=== PATIENT | male | born 1965 | race American Indian/Alaskan Native ===

== ENCOUNTER 2020-01-14 08:16 | Inpatient (IN) | payer MEDICARE ==
[2020-01-14] MEDS ORDERED: ASPIRIN 325 MG TAB PO ONE (09:42)
--- NOTE | 2020-01-14 10:34 | XRay Report ---
CHEST 2 VIEWS INDICATION / CLINICAL INFORMATION: Chest Pain. COMPARISON: None. FINDINGS: SUPPORT DEVICES: Bilateral central venous catheters present with both tips projecting over the superi or cavoatrial junction. HEART / MEDIASTINUM: No significant abnormality. LUNGS / PLEURA: Mild pulmonary vascular congestion. No pneumothorax. ADDITIONAL FINDINGS: No significant additional findings. IMPRESSION: 1. Mild pulmonary vascular congestion without focal pulmonary abnormality. Signer Name: Shahzad Oliva MD Signed: 01/14/2020 10:29 AM Workstation Name: [id number]
[2020-01-14 11:41] LABS: Basophils # (Auto) 0.1 K/mm3 (0.0-0.1); Eosinophils % (Auto) 0.8 % (0.0-4.3); Hematocrit 44.5 % (35.5-45.6); Hemoglobin 14.5 gm/dl (11.8-15.2); Lymphocytes # (Auto) 1.2 K/mm3 (1.2-5.4); Lymphocytes % (Auto) 11.9 % (13.4-35.0); Mean Corpuscular HGB Conc 33 % (32-34); Mean Corpuscular Volume 91 fl (84-94); Monocytes % (Auto) 10.6 % (0.0-7.3); Platelet Count 116 K/mm3 (140-440)
[2020-01-14 11:42] LABS: Basophils % (Auto) 0.8 % (0.0-1.8); Eosinophils # (Auto) 0.1 K/mm3 (0.0-0.4); Red Cell Distribution Width 14.4 % (13.2-15.2)
[2020-01-14 11:53] LABS: Calcium 9.5 mg/dL (8.4-10.2)
--- NOTE | 2020-01-14 11:56 | Event Note ---
ED Screening Note ED Screening Note: left sided cp and rib pain that began tuesday after finishing dialysis states he has bouts of SOB when he gets pain no leg swelling has a permcath for dialysis no fever no cough no v/d no sick contacts no recent travel PMHx ESRD, DM, HTN, HLD, anemia allergy: lisinopril This initial assessment/diagnostic orders/clinical plan/treatment(s) is/are subject to change based on patients health status, clinical progression and re- assessment by fellow clinical providers in the ED. Further treatment and workup at subsequent clinical providers discretion. Patient/guardian urged not to elope from the ED as their condition may be serious if not clinically assessed and managed. Initial orders include: CP protocol
[2020-01-14 12:20] LABS: Chol/HDL Ratio 2.7 %
[2020-01-14 12:58] LABS: Alanine Aminotransferase 11 units/L (7-56); Albumin 4.6 g/dL (3.9-5)
[2020-01-14 12:59] LABS: Bilirubin,Direct < 0.2 mg/dL (0-0.2)
--- NOTE | 2020-01-14 13:58 | Nuclear Medicine Report ---
NUCLEAR MEDICINE PERFUSION LUNG SCAN INDICATION / CLINICAL INFORMATION: SOB. TECHNIQUE: 5.2 mCi of Tc-99m MAA were given by IV. COMPARISON: Chest radiographs dated 01/14/2020. FINDINGS: PERFUSION: No significant perfusion defects. ADDITIONAL FINDINGS: None. IMPRESSION: 1. Low probability for pulmonary embolism. Signer Name: Carson Nunes MD Signed: 01/14/2020 1:54 PM Workstation Name: [id number]
--- NOTE | 2020-01-14 14:58 | Emergency Department Report ---
ED General Adult HPI - General Chief complaint: Chest Pain Stated complaint: LF SIDE RIB PAIN Time Seen by Provider: 01/14/20 11:54 Source: patient Mode of arrival: Wheelchair Limitations: No Limitations - History of Present Illness Initial comments: The patient presents to the emergency department the chief complaint of left- sided chest pain that has been intermittent since Tuesday. Patient states the chest pain started after dialysis. Patient states that he saw his bread packer who is with [facility] cardiology and is scheduled for stress test next Tuesday. Patient denies shortness of breath, abdominal pain, headache. -: Sudden Location: chest Radiation: non-radiation Severity scale (0 -10): 9 Quality: sharp Consistency: constant Improves with: none Worsens with: none Associated Symptoms: denies other symptoms Treatments Prior to Arrival: none - Related Data Allergies Allergy/AdvReac Type Severity Reaction Status Date / Time lisinopril AdvReac Unknown Verified 01/14/20 09:03 ED Review of Systems ROS: Stated complaint: LF SIDE RIB PAIN Other details as noted in HPI Comment: All other systems reviewed and negative Constitutional: denies: chills, fever Eyes: denies: eye pain, eye discharge, vision change ENT: denies: ear pain, throat pain Respiratory: denies: cough, shortness of breath, wheezing Cardiovascular: chest pain. denies: palpitations Endocrine: no symptoms reported Gastrointestinal: denies: abdominal pain, nausea, diarrhea Genitourinary: denies: urgency, dysuria Musculoskeletal: denies: back pain, joint swelling, arthralgia Skin: denies: rash, lesions Neurological: denies: headache, weakness, paresthesias Psychiatric: denies: anxiety, depression Hematological/Lymphatic: denies: easy bleeding, easy bruising ED Past Medical Hx - Past Medical History Previous Medical History?: Yes Hx Hypertension: Yes Hx Diabetes: Yes Hx Renal Disease: Yes (Dialysis Tue, , Tuesday) Additional medical history: Anemia - Social History Smoking Status: Never Smoker Substance Use Type: None ED Physical Exam - General Limitations: No Limitations General appearance: alert, in no apparent distress - Head Head exam: Present: atraumatic, normocephalic - Eye Eye exam: Present: normal appearance, PERRL - ENT ENT exam: Present: mucous membranes moist - Neck Neck exam: Present: normal inspection - Respiratory Respiratory exam: Present: normal lung sounds bilaterally. Absent: respiratory distress - Cardiovascular Cardiovascular Exam: Present: regular rate, normal rhythm. Absent: systolic murmur, diastolic murmur, rubs, gallop - GI/Abdominal GI/Abdominal exam: Present: soft, normal bowel sounds. Absent: distended, tenderness - Rectal Rectal exam: Present: deferred - Extremities Exam Extremities exam: Present: normal inspection - Back Exam Back exam: Present: normal inspection - Neurological Exam Neurological exam: Present: alert, oriented X3, CN II-XII intact. Absent: motor sensory deficit - Psychiatric Psychiatric exam: Present: normal affect, normal mood - Skin Skin exam: Present: warm, dry, intact, normal color. Absent: rash ED Course Vital Signs 01/14/20 01/14/20 09:03 14:14 Temperature 98.6 F Pulse Rate 92 H 89 Respiratory 18 17 Rate Blood Pressure 134/77 149/85 [Right] O2 Sat by Pulse 96 97 Oximetry ED Medical Decision Making - Lab Data Result diagrams: 01/14/20 10:39 01/14/20 10:39 Lab Results 01/14/20 01/14/20 01/14/20 Range/Units 10:39 10:39 10:39 WBC 9.6 (4.5-11.0) K/mm3 RBC 4.90 (3.65-5.03) M/mm3 Hgb 14.5 (11.8-15.2) gm/dl Hct 44.5 (35.5-45.6) % MCV 91 (84-94) fl MCH 30 (28-32) pg MCHC 33 (32-34) % RDW 14.4 (13.2-15.2) % Plt Count 116 L (140-440) K/mm3 Lymph % (Auto) 11.9 L (13.4-35.0) % [place] % (Auto) 10.6 H (0.0-7.3) % Eos % (Auto) 0.8 (0.0-4.3) % Baso % (Auto) 0.8 (0.0-1.8) % Lymph # (Auto) 1.2 (1.2-5.4) K/mm3 [place] # (Auto) 1.0 H (0.0-0.8) K/mm3 Eos # (Auto) 0.1 (0.0-0.4) K/mm3 Baso # (Auto) 0.1 (0.0-0.1) K/mm3 Seg Neutrophils % 75.9 H (40.0-70.0) % Seg Neutrophils # 7.3 (1.8-7.7) K/mm3 Sodium 139 (137-145) mmol/L Potassium 5.5 H (3.6-5.0) mmol/L Chloride 96.6 L (98-107) mmol/L Carbon Dioxide 25 (22-30) mmol/L Anion Gap 23 mmol/L BUN 54 H (9-20) mg/dL Creatinine 13.2 H (0.8-1.3) mg/dL Estimated GFR 4 ml/min BUN/Creatinine Ratio 4 % Glucose 78 (75-100) mg/dL Calcium 9.5 (8.4-10.2) mg/dL Phosphorus 5.30 H (2.5-4.5) mg/dL Magnesium 2.50 H (1.7-2.3) mg/dL Total Bilirubin 0.60 (0.1-1.2) mg/dL Direct Bilirubin < 0.2 (0-0.2) mg/dL AST 11 (5-40) units/L ALT 11 (7-56) units/L Alkaline Phosphatase 83 (35-129) units/L Troponin T 0.119 H* (0.00-0.029) ng/mL Total Protein 7.8 (6.3-8.2) g/dL Albumin 4.6 (3.9-5) g/dL Albumin/Globulin Ratio 1.4 % Triglycerides 68 (2-149) mg/dL Cholesterol 176 (50-199) mg/dL LDL Cholesterol Direct 103 (50-130) mg/dL HDL Cholesterol 65 H (40-59) mg/dL Cholesterol/HDL Ratio 2.70 % 11/30/20 Range/Units 14:29 WBC (4.5-11.0) K/mm3 RBC (3.65-5.03) M/mm3 Hgb (11.8-15.2) gm/dl Hct (35.5-45.6) % MCV (84-94) fl MCH (28-32) pg MCHC (32-34) % RDW (13.2-15.2) % Plt Count (140-440) K/mm3 Lymph % (Auto) (13.4-35.0) % [place] % (Auto) (0.0-7.3) % Eos % (Auto) (0.0-4.3) % Baso % (Auto) (0.0-1.8) % Lymph # (Auto) (1.2-5.4) K/mm3 [place] # (Auto) (0.0-0.8) K/mm3 Eos # (Auto) (0.0-0.4) K/mm3 Baso # (Auto) (0.0-0.1) K/mm3 Seg Neutrophils % (40.0-70.0) % Seg Neutrophils # (1.8-7.7) K/mm3 Sodium (137-145) mmol/L Potassium (3.6-5.0) mmol/L Chloride (98-107) mmol/L Carbon Dioxide (22-30) mmol/L Anion Gap mmol/L BUN (9-20) mg/dL Creatinine (0.8-1.3) mg/dL Estimated GFR ml/min BUN/Creatinine Ratio % Glucose (75-100) mg/dL Calcium (8.4-10.2) mg/dL Phosphorus (2.5-4.5) mg/dL Magnesium (1.7-2.3) mg/dL Total Bilirubin (0.1-1.2) mg/dL Direct Bilirubin (0-0.2) mg/dL AST (5-40) units/L ALT (7-56) units/L Alkaline Phosphatase (35-129) units/L Troponin T 0.120 H* (0.00-0.029) ng/mL Total Protein (6.3-8.2) g/dL Albumin (3.9-5) g/dL Albumin/Globulin Ratio % Triglycerides (2-149) mg/dL Cholesterol (50-199) mg/dL LDL Cholesterol Direct (50-130) mg/dL HDL Cholesterol (40-59) mg/dL Cholesterol/HDL Ratio % - EKG Data -: EKG Interpreted by Me EKG shows normal: sinus rhythm Rate: normal - Radiology Data Radiology results: report reviewed Critical care attestation.: If time is entered above; I have spent that time in minutes in the direct care of this critically ill patient, excluding procedure time. ED Disposition Clinical Impression: Chest pain Disposition: DC-09 OP ADMIT IP TO THIS HOSP Is pt being admited?: Yes Does the pt Need Aspirin: Yes Condition: Fair Instructions: Chest Pain (ED) Referrals: HEATHER AGUILAR MD [Primary Care Provider] - 3-5 Days
[2020-01-14] MEDS ORDERED: ASPIRIN 325 MG TAB ONE ×2 (15:17→15:20)
[2020-01-14] MEDS ORDERED: ASPIRIN 81 MG TAB CHEW PO ONE (15:48)
--- NOTE | 2020-01-14 15:52 | History and Physical Report ---
History of Present Illness Chief complaint: My chest hurts and it is getting worse History of present illness: 54 YO Male with ESRD on HD(T,R,Sa), HTN, DM, Anemia of Chronic Disease presents to ED for evaluation. Patient states that he has experienced chest pain over the past 2 days with acutely worsening symptoms over the past 6 hours. Patient states that symptoms were initially intermittent but have now become constant. Patient states that pain is 9/10, constant, substernal, nonradiating, sharp, squeezing in nature. Patient denies decreased exercise tolerance, dyspnea on exertion, dyspnea at rest. Patient transported to [facility] via private vehicle for further care and evaluation of the aforementioned symptoms. Patient seen and evaluated in the emergency department. All lab and imaging studies reviewed. Patient found to have angina as well as non-ST elevation LA, end-stage renal disease in need of dialysis, as well as clinical symptoms consistent with diastolic congestive heart failure. Patient admitted to telemetry due to increased risk of cardiac decompensation. Cardiology team consulted in ED. Nephrology team consulted in ED for urgent dialysis. Patient denies fever, chills, palpitations, productive cough, skin rash, recent ill contacts, or known exposure to COVID-19. No prior admission for review. No medication listed for reconciliation at the time of my admission. Past History Past Medical History: diabetes, ESRD, hypertension Past Surgical History: Other (Dialysis access) Medications and Allergies Allergies Allergy/AdvReac Type Severity Reaction Status Date / Time lisinopril AdvReac Unknown Verified 01/14/20 09:03 Review of Systems Constitutional: no weight loss, no weight gain, no fever, no chills Ears, nose, mouth and throat: no ear pain, no ear discharge, no tinnitis, no decreased hearing, no nose pain, no nasal discharge Cardiovascular: chest pain, shortness of breath, dyspnea on exertion, decreased exercise tolerance, no palpitations, no rapid/irregular heart beat Respiratory: no cough, no excessive sputum, no hemoptysis, no shortness of breath Gastrointestinal: no abdominal pain, no nausea, no vomiting, no diarrhea, no constipation Genitourinary Male: no hematuria, no flank pain, no discharge, no urinary frequency, no urinary hesitancy Rectal: no pain, no incontinence, no bleeding Musculoskeletal: no neck stiffness, no neck pain, no shooting arm pain, no arm numbness/tingling, no low back pain, no leg numbness/tingling Integumentary: no rash, no pruritis, no redness, no sores, no wounds Neurological: no transient paralysis, no paralysis, no weakness, no parathesias, no numbness, no tingling, no seizures Psychiatric: no anxiety, no memory loss, no change in sleep habits, no sleep disturbances, no insomnia, no hypersomnia, no change in appetite, no change in libido Endocrine: no cold intolerance, no heat intolerance, no polyphagia, no excessive thirst, no nocturia Hematologic/Lymphatic: no easy bruising, no easy bleeding, no lymphedema Allergic/Immunologic: no urticaria, no allergic rhinitis, no wheezing, no anaphylaxis, no angioedema Exam - Constitutional Vitals: Temp Pulse Resp BP Pulse Ox 98.6 F 89 17 149/85 97 01/14/20 09:03 01/14/20 14:14 01/14/20 14:14 01/14/20 14:14 01/14/20 14:14 General appearance: Present: mild distress, cachectic - EENT Eyes: Present: PERRL ENT: hearing intact, clear oral mucosa - Neck Neck: Present: supple, normal ROM - Respiratory Respiratory effort: normal Respiratory: bilateral: CTA - Cardiovascular Heart Sounds: Present: S1 & S2. Absent: rub, click - Extremities Extremities: pulses symmetrical, No edema Peripheral Pulses: within normal limits - Abdominal General gastrointestinal: Present: soft, non-tender, non-distended, normal bowel sounds Male genitourinary: Present: normal - Integumentary Integumentary: Present: clear, warm, dry - Musculoskeletal Musculoskeletal: gait normal, strength equal bilaterally - Psychiatric Psychiatric: appropriate mood/affect, intact judgment & insight - Neurologic Neurologic: CNII-XII intact, moves all extremities HEART Score - HEART Score Troponin: Troponin T 0.120 ng/mL (0.00-0.029) H* 01/14/20 14:29 Results - Labs CBC & Chem 7: 01/14/20 10:39 01/14/20 10:39 Labs: Abnormal lab results 01/14/20 01/14/20 01/14/20 Range/Units 10:39 10:39 10:39 Plt Count 116 L (140-440) K/mm3 Lymph % (Auto) 11.9 L (13.4-35.0) % [place] % (Auto) 10.6 H (0.0-7.3) % [place] # (Auto) 1.0 H (0.0-0.8) K/mm3 Seg Neutrophils % 75.9 H (40.0-70.0) % Potassium 5.5 H (3.6-5.0) mmol/L Chloride 96.6 L (98-107) mmol/L BUN 54 H (9-20) mg/dL Creatinine 13.2 H (0.8-1.3) mg/dL Phosphorus 5.30 H (2.5-4.5) mg/dL Magnesium 2.50 H (1.7-2.3) mg/dL Troponin T 0.119 H* (0.00-0.029) ng/mL HDL Cholesterol 65 H (40-59) mg/dL 01/14/20 Range/Units 14:29 Plt Count (140-440) K/mm3 Lymph % (Auto) (13.4-35.0) % [place] % (Auto) (0.0-7.3) % [place] # (Auto) (0.0-0.8) K/mm3 Seg Neutrophils % (40.0-70.0) % Potassium (3.6-5.0) mmol/L Chloride (98-107) mmol/L BUN (9-20) mg/dL Creatinine (0.8-1.3) mg/dL Phosphorus (2.5-4.5) mg/dL Magnesium (1.7-2.3) mg/dL Troponin T 0.120 H* (0.00-0.029) ng/mL HDL Cholesterol (40-59) mg/dL Assessment and Plan - Patient Problems (1) Angina at rest Current Visit: Yes Status: Acute Plan to address problem: Serial cardiac enzymes, EKG, telemetry, cardiology team consulted in ED, morphine, supplemental oxygen, nitro, aspirin, (2) Non-ST elevation LA (NSTEMI) Current Visit: Yes Status: Acute Plan to address problem: Serial cardiac enzymes, EKG, telemetry monitoring, cardiology team consulted in ED, echocardiogram ordered and is pending at time of admission, stress test pending as per cardiology team. (3) Diastolic CHF Current Visit: Yes Status: Acute Qualifiers: Heart failure chronicity: acute Qualified Code(s): I50.31 - Acute diastolic (congestive) heart failure Plan to address problem: Strict I's/O, monitor urine output every shift, daily weight, afterload reduction, blood pressure control, echocardiogram ordered and is pending at time of admission. (4) DVT prophylaxis Current Visit: Yes Status: Acute Plan to address problem: SCD to bilateral lower extremities while in bed, prophylactic anticoagulation.
[2020-01-14] MEDS ORDERED: ONDANSETRON 4 MG/2 ML INJ IV PRN (15:53)
[2020-01-14] MEDS ORDERED: ACETAMINOPHEN 325 MG TAB PO PRN ×2 (15:53→15:56)
[2020-01-14] MEDS ORDERED: ALBUTEROL 2.5 MG/3 ML NEBU IH PRN (15:53)
[2020-01-14] MEDS ORDERED: NITROGLYCERIN 0.4 MG TAB SUBL SL PRN (15:56)
[2020-01-14] MEDS: HEPARIN 5,000 UNIT/1 ML VIAL SUB-Q SCH (22:33)
[2020-01-15 08:09] LABS: Basophils % (Auto) 0.4 % (0.0-1.8); Eosinophils # (Auto) 0.2 K/mm3 (0.0-0.4); Eosinophils % (Auto) 2.5 % (0.0-4.3); Hematocrit 41.9 % (35.5-45.6); Hemoglobin 13.7 gm/dl (11.8-15.2); Lymphocytes # (Auto) 1.4 K/mm3 (1.2-5.4); Lymphocytes % (Auto) 17.2 % (13.4-35.0); Mean Corpuscular HGB Conc 33 % (32-34); Mean Corpuscular Volume 91 fl (84-94); Monocytes # (Auto) 0.9 K/mm3 (0.0-0.8); Platelet Count 120 K/mm3 (140-440)
[2020-01-15] MEDS: HEPARIN 5,000 UNIT/1 ML VIAL SUB-Q SCH ×2 (09:45→22:52)
[2020-01-15 10:19] LABS: Calcium 9.1 mg/dL (8.4-10.2)
--- NOTE | 2020-01-15 10:19 | Consultation ---
History of Present Illness Consult date: 01/15/20 Requesting physician: BETITO DOMINGUEZ Consult reason: chest pain History of present illness: The pt is a 54 YO male with a past medical history of ESRD on HD, HTN, DM. He is previously unknown to our practice. He presented with c/o chest pain since Tuesday. He describes his chest pain as an intermittent, left-sided ribcage aching pain which is aggravated by deep inspiration and positional changes (hurts to lie on his left side). He denies SOB, palpitations, n/v, diaphoresis, dizziness or syncope. He denies any known prior cardiac issues. He reports undergoing treadmill stress testing in the past which was normal to his knowledge. Past History Past Medical History: diabetes, dialysis, ESRD, hypertension Past Surgical History: Other (Dialysis access) Medications and Allergies Allergies Allergy/AdvReac Type Severity Reaction Status Date / Time lisinopril AdvReac Unknown Verified 01/14/20 09:03 Home Medications Medication Instructions Recorded Confirmed Last Taken Type Aspirin BABY CHEW TAB 135 mg PO ONCE 01/15/20 01/15/20 Unknown History AtorvaSTATin 40 mg PO ONCE 01/15/20 01/15/20 Unknown History NovoLOG Mix 70/30 VIAL 3 units IJ ONCE 01/15/20 01/15/20 Unknown History Velphoro (Nf) 500 mg PO TID 01/15/20 01/15/20 Unknown History Active Meds: Active Medications Acetaminophen (Tylenol) 650 mg PO Q4H PRN PRN Reason: Pain MILD(1-3)/Fever >100.5/BREWER Albuterol (Proventil) 2.5 mg IH Q4HRT PRN PRN Reason: Shortness Of Breath Heparin Sodium (Porcine) (Heparin) 5,000 unit SUB-Q Q12HR [facility] Last Admin: 01/15/20 09:45 Dose: 5,000 unit Documented by: Ondansetron HCl (Zofran) 4 mg IV Q8H PRN PRN Reason: Nausea And Vomiting Sodium Chloride (Sodium Chloride Flush Syringe 10 Ml) 10 ml IV BID [facility] Last Admin: 01/15/20 09:44 Dose: 10 ml Documented by: Sodium Chloride (Sodium Chloride Flush Syringe 10 Ml) 10 ml IV PRN PRN PRN Reason: LINE FLUSH Review of Systems Constitutional: no weight loss, no weight gain, no fever, no chills, no sweats Ears, nose, mouth and throat: no ear pain, no nose pain, no sinus pressure, no sinus pain Cardiovascular: chest pain, no orthopnea, no palpitations, no rapid/irregular heart beat, no edema, no syncope, no lightheadedness, no shortness of breath, no dyspnea on exertion, no leg edema Respiratory: pain on inspiration, no cough, no shortness of breath, no dyspnea on exertion, no congestion, no wheezing Gastrointestinal: no abdominal pain, no nausea, no vomiting, no diarrhea, no constipation, no change in bowel habits Genitourinary Male: no dysuria, no hematuria, no flank pain, no discharge, no u rinary frequency, no urinary hesitancy Musculoskeletal: no neck stiffness, no neck pain, no shooting arm pain, no arm numbness/tingling, no low back pain, no shooting leg pain Integumentary: no rash, no pruritis, no redness, no sores, no wounds Neurological: no head injury, no paralysis, no weakness, no parathesias, no numb ness, no tingling, no seizures, no syncope Psychiatric: no anxiety Endocrine: no cold intolerance, no heat intolerance Hematologic/Lymphatic: no easy bruising, no easy bleeding Allergic/Immunologic: no urticaria Physical Examination Vital Signs Temp Pulse Resp BP Pulse Ox 98.6 F 92 H 18 134/77 96 01/14/20 09:03 01/14/20 09:03 01/14/20 09:03 01/14/20 09:03 01/14/20 09:03 General appearance: no acute distress HEENT: Positive: PERRL, Normocephaly, Mucus Membranes Moist Neck: Positive: neck supple, trachea midline Cardiac: Positive: Reg Rate and Rhythm, S1/S2 Lungs: Positive: Decreased Breath Sounds Abdomen: Negative: Tender Skin: Negative: Rash Musculoskeletal: No Pain Extremities: Absent: edema Results 01/15/20 07:23 01/14/20 10:39 Cardiac Enzymes 01/14/20 Range/Units 10:39 AST 11 (5-40) units/L Lipids 01/14/20 Range/Units 10:39 Triglycerides 68 (2-149) mg/dL Cholesterol 176 (50-199) mg/dL HDL Cholesterol 65 H (40-59) mg/dL Cholesterol/HDL Ratio 2.70 % CBC 01/14/20 01/15/20 Range/Units 10:39 07:23 WBC 9.6 7.9 (4.5-11.0) K/mm3 RBC 4.90 4.60 (3.65-5.03) M/mm3 Hgb 14.5 13.7 (11.8-15.2) gm/dl Hct 44.5 41.9 (35.5-45.6) % Plt Count 116 L 120 L (140-440) K/mm3 Lymph # (Auto) 1.2 1.4 (1.2-5.4) K/mm3 [place] # (Auto) 1.0 H 0.9 H (0.0-0.8) K/mm3 Eos # (Auto) 0.1 0.2 (0.0-0.4) K/mm3 Baso # (Auto) 0.1 0.0 (0.0-0.1) K/mm3 Comprehensive Metabolic Panel 01/14/20 01/14/20 Range/Units 10:39 10:39 Sodium 139 (137-145) mmol/L Potassium 5.5 H (3.6-5.0) mmol/L Chloride 96.6 L (98-107) mmol/L Carbon Dioxide 25 (22-30) mmol/L BUN 54 H (9-20) mg/dL Creatinine 13.2 H (0.8-1.3) mg/dL Glucose 78 (75-100) mg/dL Calcium 9.5 (8.4-10.2) mg/dL Direct Bilirubin < 0.2 (0-0.2) mg/dL AST 11 (5-40) units/L ALT 11 (7-56) units/L Alkaline Phosphatase 83 (35-129) units/L Total Protein 7.8 (6.3-8.2) g/dL Albumin 4.6 (3.9-5) g/dL - Imaging and Cardiology Echo: pending EKG: report reviewed, image reviewed EKG interpretations - Telemetry EKG Rhythm: Sinus Rhythm - EKG Sinus rhythms and dysrhythmias: sinus rhythm Assessment and Plan Chest pain appears musculoskeletal in origin, currently resolved. EKG with NSR, no acute ischemic changes. V/Q low prob for PE. Cont present cardiac regimen. Obtain echo and plan for lexiscan MPI stress test in AM. NPO after MN. The patient has been seen in conjunction with Dr. Lezama who agrees with the assessment and plan of care. - Patient Problems (1) Chest pain Current Visit: Yes Status: Acute (2) Non-ST elevation [place] (NSTEMI) Current Visit: Yes Status: Acute Plan to address problem: suspect type II (3) HTN (hypertension) Current Visit: Yes Status: Chronic (4) Diabetes Current Visit: Yes Status: Chronic (5) ESRD on hemodialysis Current Visit: Yes Status: Chronic
--- NOTE | 2020-01-15 12:39 | Progress Note ---
Assessment and Plan -- Angina at rest Monitor weight serial cardiac enzymes, EKG, telemetry, cardiology team consulted in ED, Placed on morphine, supplemental oxygen, nitro, aspirin, VQ scan negative for any PE Plan for stress test tomorrow -- Non-ST elevation [place] (NSTEMI) Likely type II due to end-stage renal disease Cardiology consulted, continue to monitor clinically for now Stress test ordered for tomorrow --Hyperkalemia, due to end-stage renal disease Should correct with hemodialysis, repeat BMP in the morning -- HTN. Resume home antihypertensive, continue to adjust medications as needed -- diabetes mellitus type 2 Consistent carb diet, SSI for blood glucose management ESRD -Nephrology consulted for hemodialysis Brief history: The pt is a 54 YO male with a past medical history of ESRD on HD, HTN, DM presented with c/o left-sided chest pain since Tuesday. He describes his chest pain as an intermittent, left-sided ribcage aching pain which is aggravated by deep inspiration and positional changes (hurts to lie on his left side). Checks x-ray showed mild pulmonary vascular congestion, VQ scan showed low probability for PE. Cardiac enzymes showed elevated troponin, patient placed on aspirin and statin, cardiology consulted in the ER, admitted for further evaluation and management. 01/14: Plan for stress test tomorrow, nephrology consulted for hemodialysis. Continue to monitor clinically Subjective Date of service: 01/15/20 Interval history: Patient seen and examined. Medical records and medication list reviewed. No acute event overnight noted by the RN. Patient denies any chest pain now, has no difficulty breathing. Patient is tolerating diet. Discussed plan of care at bedside with patient. Stress test canceled for today as patient had a VQ scan -plan for tomorrow morning Objective - Exam Narrative Exam: GENERAL: well-developed and well-nourished -[place] male lying on bed appeared to be in no discomfort. HEENT: Normocephalic. Atraumatic. No conjunctival congestion or icterus. Patient has moist mucous membranes. NECK: Supple. Trachea midline. CHEST/LUNGS: Clear to auscultated bilaterally, breathing nonlabored. No wheezes crackles or rhonchi. HEART/CARDIOVASCULAR: Regular in rate and rhythm. S1 and S2 positive. ABDOMEN: Abdomen is soft, nontender. Patient has normal bowel sounds. SKIN: There is no rash. Warm and dry. NEURO: No focal motor deficit. Follows command. MUSCULOSKELETAL: No joint effusion or tenderness. EXTRIMITY: No edema, no cyanosis or clubbing. PSYCH: Cooperative. - Constitutional Vitals: Vital Signs - 12hr 01/15/20 01/15/20 01/15/20 00:46 03:42 07:35 Temperature 98.0 F 97.8 F Pulse Rate 79 77 74 Pulse Rate [ Left Radial] Pulse Rate [ Right Radial] Respiratory 18 18 Rate Respiratory Rate [lLUQ] Blood Pressure 126/77 142/84 O2 Sat by Pulse 94 96 Oximetry 01/15/20 01/15/20 10:00 11:57 Temperature 97.8 F Pulse Rate 79 Pulse Rate [ 74 Left Radial] Pulse Rate [ 74 Right Radial] Respiratory 19 18 Rate Respiratory 18 Rate [lLUQ] Blood Pressure 134/81 O2 Sat by Pulse 96 Oximetry - Labs CBC & Chem 7: 01/15/20 07:23 01/16/20 09:38 Labs: Abnormal lab results 01/14/20 01/14/20 01/14/20 Range/Units 10:39 14:29 Unknown Plt Count (140-440) K/mm3 [place] % (Auto) (0.0-7.3) % [place] # (Auto) (0.0-0.8) K/mm3 Sodium (137-145) mmol/L Potassium (3.6-5.0) mmol/L Chloride (98-107) mmol/L BUN (9-20) mg/dL Creatinine (0.8-1.3) mg/dL POC Glucose (70-105) mg/dL Phosphorus 5.30 H (2.5-4.5) mg/dL Magnesium 2.50 H (1.7-2.3) mg/dL Troponin T 0.120 H* 0.112 H* (0.00-0.029) ng/mL 01/15/20 01/15/20 01/15/20 Range/Units 07:23 07:23 11:24 Plt Count 120 L (140-440) K/mm3 [place] % (Auto) 12.0 H (0.0-7.3) % [place] # (Auto) 0.9 H (0.0-0.8) K/mm3 Sodium 135 L (137-145) mmol/L Potassium 5.5 H (3.6-5.0) mmol/L Chloride 96.1 L (98-107) mmol/L BUN 67 H (9-20) mg/dL Creatinine 14.5 H (0.8-1.3) mg/dL POC Glucose 152 H (70-105) mg/dL Phosphorus (2.5-4.5) mg/dL Magnesium (1.7-2.3) mg/dL Troponin T (0.00-0.029) ng/mL HEART Score - HEART Score Troponin: Troponin T 0.112 ng/mL (0.00-0.029) H* 01/14/20 Unknown
[2020-01-15] MEDS ORDERED: SODIUM CHLORIDE 0.9% 100 ML IV PRN (14:11)
--- NOTE | 2020-01-15 14:25 | Consultation ---
History of Present Illness - Reason for Consult Consult date: 01/15/20 end stage renal disease Requesting physician: ANNE MARIE ROBLERO - History of Present Illness 54 YO Male with ESRD on HD(T,R,Sa), HTN, DM, Anemia of Chronic Disease presents to ED for evaluation. Patient states that he has experienced chest pain over the past 2 days with acutely worsening symptoms over the past 6 hours. Patient states that symptoms were initially intermittent but have now become constant. Patient states that pain is 9/10, constant, substernal, nonradiating, sharp, squeezing in nature. Patient denies decreased exercise tolerance, dyspnea on exertion, dyspnea at rest. Patient transported to [facility] via private vehicle for further care and evaluation of the aforementioned symptoms. Patient seen and evaluated in the emergency department. All lab and imaging studies reviewed. Patient found to have angina as well as non-ST elevation [place], end-stage renal disease in need of dialysis, as well as clinical symptoms consistent with diastolic congestive heart failure. Patient admitted to telemetry due to increased risk of cardiac decompensation. Cardiology team consulted in ED. Patient undergoes dialysis at [facility] on TTS schedule under our care. Patient did have his dialysis on Tuesday and is due for dialysis again today. He denies any shortness of breath at this time. Past History Past Medical History: diabetes, dialysis, ESRD, hypertension Past Surgical History: Other (Dialysis access) Medications and Allergies Allergies Allergy/AdvReac Type Severity Reaction Status Date / Time lisinopril AdvReac Unknown Verified 01/14/20 09:03 Home Medications Medication Instructions Recorded Confirmed Last Taken Type Aspirin BABY CHEW TAB 135 mg PO ONCE 01/15/20 01/15/20 Unknown History AtorvaSTATin 40 mg PO ONCE 01/15/20 01/15/20 Unknown History NovoLOG Mix 70/30 VIAL 3 units IJ ONCE 01/15/20 01/15/20 Unknown History Velphoro (Nf) 500 mg PO TID 01/15/20 01/15/20 Unknown History Active Meds: Active Medications Acetaminophen (Tylenol) 650 mg PO Q4H PRN PRN Reason: Pain MILD(1-3)/Fever >100.5/BREWER Albuterol (Proventil) 2.5 mg IH Q4HRT PRN PRN Reason: Shortness Of Breath Aspirin (Aspirin) 325 mg PO QDAY ZENON Atorvastatin Calcium (Lipitor) 40 mg PO QHS ZENON Heparin Sodium (Porcine) (Heparin) 5,000 unit SUB-Q Q12HR [facility] Last Admin: 01/15/20 09:45 Dose: 5,000 unit Documented by: Sodium Chloride (Nacl 0.9%) 100 mls @ 999 mls/hr IV RAMAN PRN PRN Reason: Hypotension Metoprolol Tartrate (Metoprolol) 25 mg PO BID [facility] Ondansetron HCl (Zofran) 4 mg IV Q8H PRN PRN Reason: Nausea And Vomiting Sodium Chloride (Sodium Chloride Flush Syringe 10 Ml) 10 ml IV BID [facility] Last Admin: 01/15/20 09:44 Dose: 10 ml Documented by: Sodium Chloride (Sodium Chloride Flush Syringe 10 Ml) 10 ml IV PRN PRN PRN Reason: LINE FLUSH Review of Systems All systems: negative (Negative except as noted above) Exam - Vital Signs Vital signs: Vital Signs Temp Pulse Resp BP Pulse Ox 98.6 F 92 H 18 134/77 96 01/14/20 09:03 01/14/20 09:03 01/14/20 09:03 01/14/20 09:03 01/14/20 09:03 - General Appearance General appearance: well-developed, well-nourished, appears stated age EENT: PERRL, mucous membranes moist Neck: Present: neck supple, trachea midline, Other (Right IJ PermCath in place). Absent: JVD/HJR, Masses Respiratory: Clear to Ascultation Heart: regular, normal heart rate, S1S2, no murmurs Gastrointestinal: Present: normal, normoactive bowel sounds Integumentary: no rash, other (No edema. Multiple old AV access noted in his left upper arm. No bruit or thrill) Results - Lab Results 01/15/20 07:23 01/15/20 07:23 Most recent lab results Calcium 9.1 mg/dL (8.4-10.2) 01/15/20 07:23 Phosphorus 5.30 mg/dL (2.5-4.5) H 01/14/20 10:39 Magnesium 2.50 mg/dL (1.7-2.3) H 01/14/20 10:39 Assessment and Plan Impression * End-stage renal disease on maintenance hemodialysis * Hyperkalemia * Chest pain * Hypertension * Diabetes Recommendations * Shall schedule patient for hemodialysis for today and keep him on TTS schedule as outpatient * [facility] * Hyperkalemia should be corrected with dialysis * No indication for Epogen at this time * Adjust diet and meds for ESRD state * Avoid nephrotoxins * Binders with meals * Further plan as per cardiology services * Thank you very much for the consultation. Shall follow along with you
[2020-01-15 16:00] LABS: Hepatitis B Surface Antigen Non-Reactive (Negative); Hepatitis C Virus Antibody Non-Reactive (NonReactive)
[2020-01-15] MEDS: METOPROLOL TARTRATE 25 MG TAB PO SCH (22:52)
[2020-01-16] MEDS: INSULIN REGULAR, HUMAN 100 UNIT/ML 3ML VIAL SUB-Q SCH ×3 (00:55→13:29)
[2020-01-16] MEDS ORDERED: REGADENOSON 0.4 MG/5 ML INJ IV ONE ×2 (08:12→08:16)
--- NOTE | 2020-01-16 09:43 | Progress Note ---
Assessment and Plan Impression * End-stage renal disease on maintenance hemodialysis * Hyperkalemia * Chest pain * Hypertension * Diabetes Recommendations * Patient had uneventful hemodialysis yesterday * Continue dialysis on TTS schedule. * Patient undergoes dialysis at [facility] on TTS schedule * Hyperkalemia should be corrected with dialysis * No indication for Epogen at this time * Adjust diet and meds for ESRD state * Avoid nephrotoxins * Binders with meals * Further plan as per cardiology services Subjective Date of service: 01/16/20 Interval history: Patient is currently undergoing a stress test. Patient denies any chest pain or shortness of breath. Objective - Vital Signs Vital signs: Vital Signs - 12hr 01/15/20 01/15/20 01/15/20 21:45 22:00 22:49 Temperature 98.0 F 97.7 F Pulse Rate 82 80 83 Respiratory 18 16 Rate Blood Pressure 143/90 144/88 139/92 O2 Sat by Pulse 96 Oximetry 01/15/20 01/16/20 01/16/20 22:52 03:23 07:33 Temperature 97.9 F 98.3 F Pulse Rate 83 69 79 Respiratory 16 20 Rate Blood Pressure 139/92 127/71 105/74 O2 Sat by Pulse 95 92 Oximetry 01/16/20 01/16/20 01/16/20 08:26 08:27 08:49 Temperature Pulse Rate Respiratory Rate Blood Pressure 120/78 122/75 109/68 O2 Sat by Pulse Oximetry 01/16/20 01/16/20 01/16/20 08:50 08:52 08:53 Temperature Pulse Rate Respiratory Rate Blood Pressure 123/67 126/70 121/71 O2 Sat by Pulse Oximetry - General Appearance General appearance: well-developed, well-nourished, appears stated age EENT: PERRL, mucous membranes moist Neck: no JVD, no thyromegaly, no carotid bruit, supple, other (Right IJ PermCath in place) Respiratory: Present: Clear to Ascultation Cardiology: regular, normal heart rate, S1S2, no murmurs Gastrointestinal: normal, normoactive bowel sounds Integumentary: no rash, other (No edema) - Lab 01/15/20 07:23 01/15/20 07:23 Most recent lab results Calcium 9.1 mg/dL (8.4-10.2) 01/15/20 07:23 Phosphorus 5.30 mg/dL (2.5-4.5) H 01/14/20 10:39 Magnesium 2.50 mg/dL (1.7-2.3) H 01/14/20 10:39 Medications & Allergies - Medications Allergies/Adverse Reactions: Allergies lisinopril Adverse Reaction (Verified 01/14/20 09:03) Unknown Home Medications: Home Medications Medication Instructions Recorded Confirmed Last Taken Type Aspirin BABY CHEW TAB 135 mg PO ONCE 01/15/20 01/15/20 Unknown History AtorvaSTATin 40 mg PO ONCE 01/15/20 01/15/20 Unknown History NovoLOG Mix 70/30 VIAL 3 units IJ ONCE 01/15/20 01/15/20 Unknown History Velphoro (Nf) 500 mg PO TID 01/15/20 01/15/20 Unknown History Active Medications: Generic Name Dose Route Start Last Admin Trade Name Freq PRN Reason Stop Dose Admin Acetaminophen 650 mg 01/14/20 15:53 Tylenol PO Q4H PRN Pain MILD(1-3)/Fever >100.5/BREWER Albuterol 2.5 mg 01/14/20 15:53 Proventil IH Q4HRT PRN Shortness Of Breath Aspirin 325 mg 01/16/20 10:00 Aspirin PO QDAY [facility] Atorvastatin Calcium 40 mg 01/15/20 22:00 01/15/20 22:52 Lipitor PO 40 mg QHS ZENON Administration Heparin Sodium (Porcine) 5,000 unit 01/14/20 22:00 01/15/20 22:52 Heparin SUB-Q 5,000 unit Q12HR ZENON Administration Sodium Chloride 100 mls @ 999 mls/hr 01/15/20 14:11 Nacl 0.9% IV RAMAN PRN Hypotension Insulin Human Regular 0 unit 01/15/20 22:00 01/16/20 08:30 Humulin R SUB-Q Not Given ACHS [facility] Protocol Metoprolol Tartrate 25 mg 01/15/20 22:00 01/15/20 22:52 Metoprolol PO 25 mg BID ZENON Administration Ondansetron HCl 4 mg 01/14/20 15:53 Zofran IV Q8H PRN Nausea And Vomiting Sodium Chloride 10 ml 01/14/20 22:00 01/15/20 22:52 Sodium Chloride Flush Syringe 10 Ml IV 10 ml BID ZENON Administration Sodium Chloride 10 ml 01/14/20 15:53 Sodium Chloride Flush Syringe 10 Ml IV PRN PRN LINE FLUSH
[2020-01-16] MEDS ORDERED: ASPIRIN 325 MG TAB PO SCH (10:00)
[2020-01-16 10:23] LABS: Calcium 9.2 mg/dL (8.4-10.2)
--- NOTE | 2020-01-16 10:39 | Progress Note ---
Assessment and Plan tte reviewed - EF 50-55%, catheter in RA. S/p lexiscan MPI stress test today which showed small mild inferolateral ischemia, normal EF. Given ECG with NAF, relatively flat Edith, atypical nature of chest pain and current resolution of chest pain, recommend medical management at this time. Cont ASA 325, lipitor, lopressor. Initiate Imdur. No Plavix due to reported history of thrombocytopenia secondary to Plavix. Can consider coronary angiography as OP if chest pain recurs despite optimal medical management. Currently stable cardiac status. Pt may discharge from cardiology standpoint. Follow up in our [place] office with Dr. Leazma on 01/28/2020 @ 11:15AM. The patient has been seen in conjunction with Dr. Lezama who agrees with the assessment and plan of care. - Patient Problems (1) Chest pain Current Visit: Yes Status: Resolved (2) Non-ST elevation [place] (NSTEMI) Current Visit: Yes Status: Acute Plan to address problem: suspect type II (3) HTN (hypertension) Current Visit: Yes Status: Chronic (4) Diabetes Current Visit: Yes Status: Chronic (5) ESRD on hemodialysis Current Visit: Yes Status: Chronic Subjective Date of service: 01/16/20 Principal diagnosis: cp Interval history: pt for stress test, no current complaints. tele reviewed - in SR. Objective Last Vital Signs Temp 98.3 F 01/16/20 07:33 Pulse 79 01/16/20 07:33 Resp 20 01/16/20 07:33 BP 121/71 01/16/20 08:53 Pulse Ox 92 01/16/20 07:33 - Physical Examination General: No Apparent Distress HEENT: Positive: PERRL, Normocephaly, Mucus Membranes Moist Neck: Positive: neck supple, trachea midline, Other (Right IJ PermCath in place). Negative: JVD/HJR, Masses Cardiac: Positive: Reg Rate and Rhythm, S1/S2 Lungs: Positive: Decreased Breath Sounds Abdomen: Negative: Tender Skin: Negative: Rash Musculoskeletal: No Pain Extremities: Absent: edema - Labs and Meds Comprehensive Metabolic Panel 01/16/20 Range/Units 09:38 Sodium 136 L (137-145) mmol/L Potassium 4.5 (3.6-5.0) mmol/L Chloride 95.9 L (98-107) mmol/L Carbon Dioxide 29 (22-30) mmol/L BUN 35 H (9-20) mg/dL Creatinine 10.0 H (0.8-1.3) mg/dL Glucose 151 H (75-100) mg/dL Calcium 9.2 (8.4-10.2) mg/dL - Imaging and Cardiology EKG: report reviewed, image reviewed Echo: pending - EKG Sinus rhythms and dysrhythmias: sinus rhythm
--- NOTE | 2020-01-16 10:51 | Discharge Summary ---
Providers - Providers Date of Admission: 01/14/20 15:54 Date of discharge: 01/16/20 Attending physician: ANNE MARIE ROBLERO 01/15/20 12:40 Consult to Physician [CONS] Routine Comment: Consulting Provider: REYNA LI Physician Instructions: Reason For Exam: need HD Primary care physician: HEATHER AGUILAR Hospitalization Condition: Fair Pertinent studies: CXR VQ scan Myocardial stress test Hospital course: Brief history: The pt is a 54 YO male with a past medical history of ESRD on HD, HTN, DM presented with c/o left-sided chest pain since Tuesday. He describes his chest pain as an intermittent, left-sided ribcage aching pain which is aggravated by deep inspiration and positional changes (hurts to lie on his left side). Checks x-ray showed mild pulmonary vascular congestion, VQ scan showed low probability for PE. Cardiac enzymes showed elevated troponin, patient placed on aspirin and statin, cardiology consulted in the ER, admitted for further evaluation and management. Daily course: 01/14: Plan for stress test tomorrow, nephrology consulted for hemodialysis. Continue to monitor clinically 01/15: tte reviewed - EF 50-55%, catheter in RA. S/p lexiscan MPI stress test today which showed small mild inferolateral ischemia, normal EF. Given ECG with NAF, relatively flat Edith, atypical nature of chest pain and current resolution of chest pain, recommend medical management at this time. Cont ASA 325, lipitor, lopressor. Initiate Imdur. Can consider coronary angiography as OP if chest pain recurs despite optimal medical management. patient will f/u with Dr. Lezama in 2 weeks. He was then discharged home in stable condition with outpatient follow-up. Discharge diagnosis: -- Angina at rest Monitored with serial cardiac enzymes, EKG, telemetry, cardiology team consulted in ED, Placed on morphine, supplemental oxygen, nitro, aspirin, VQ scan negative for any PE Plan for stress test tomorrow -- Non-ST elevation [place] (NSTEMI) Likely type II due to end-stage renal disease Cardiology consulted, recommended medical management --Hyperkalemia, due to end-stage renal disease, corrected with hemodialysis, -- HTN. Resumed home antihypertensive and adjusted -- diabetes mellitus type 2 on insulin Consistent carb diet, SSI for blood glucose management ESRD -Nephrology consulted for hemodialysis Disposition: DC-01 TO HOME OR SELFCARE Time spent for discharge: 34 minutes Core Measure Documentation - Palliative Care Palliative Care/ Comfort Measures: Not Applicable - Core Measures Any of the following diagnoses?: none Exam - Physical Exam Narrative exam: GENERAL: well-developed and well-nourished -[place] male lying on bed appeared to be in no discomfort. HEENT: Normocephalic. Atraumatic. No conjunctival congestion or icterus. Patient has moist mucous membranes. NECK: Supple. Trachea midline. CHEST/LUNGS: Clear to auscultated bilaterally, breathing nonlabored. No wheezes crackles or rhonchi. HEART/CARDIOVASCULAR: Regular in rate and rhythm. S1 and S2 positive. ABDOMEN: Abdomen is soft, nontender. Patient has normal bowel sounds. SKIN: There is no rash. Warm and dry. NEURO: No focal motor deficit. Follows command. MUSCULOSKELETAL: No joint effusion or tenderness. EXTRIMITY: No edema, no cyanosis or clubbing. PSYCH: Cooperative. - Constitutional Vitals: Temp Pulse Resp BP Pulse Ox 98.3 F 79 20 121/71 92 01/16/20 07:33 01/16/20 07:33 01/16/20 07:33 01/16/20 08:53 01/16/20 07:33 Plan Activity: advance as tolerated Weight Bearing Status: Non-Weight Bearing Diet: renal Special Instructions: restrict fluid intake to (1.5L daily), record daily weights, record daily BP diary Follow up with: HEATHER AGUILAR MD [Primary Care Provider] - 3-5 Days ISABELLA LEZAMA MD [Staff Physician] - 7 Days Prescriptions: AtorvaSTATin [Lipitor] 40 mg PO QHS #30 tablet Aspirin 325 mg PO QDAY #30 tablet ISOSORBIDE MONOnitrate [Imdur ER] 30 mg PO QDAY #30 tablet Metoprolol [Lopressor TAB] 25 mg PO BID #60 tablet
[2020-01-16] MEDS: HEPARIN 5,000 UNIT/1 ML VIAL SUB-Q SCH (10:53)
--- NOTE | 2020-01-16 12:43 | Treadmill Report ---
CARDIAC NUCLEAR PERFUSION REASON FOR STUDY: Abnormal troponin. IMAGING PROTOCOL: The patient received 10 mCi of Technetium 99m Tetrofosmin for resting image and 28 mCi of Technetium 99m Tetrofosmin for stress imaging. The imaging for the whole procedure was completed 30-90 minutes following the initial injection of Technetium 99m Tetrofosmin. The SPECT imaging in the 180 degree arc was performed in the right anterior oblique projection. Computerized reconstruction of the images was performed for analysis. IMAGING RESULTS: Normal cavity size from stress to rest. Normal distribution of radionuclide in the anterior, inferior, septal, anterior lateral regions. There is a small mild decrease in the inferolateral region seen on stress compared to rest. Gated SPECT, EF of 59% with no wall motion abnormality. The patient infused Lexiscan with no EKG changes. SUMMARY: 1. Negative Lexiscan EKG. 2. There is a small mild inferolateral ischemia with normal LV function, no significant ischemia, global is noted. We will treat medically. JOB# [id number] TATYANA/NIMA
[2020-01-16 12:46] VITALS: BP 89/59
[2020-01-16] MEDS: METOPROLOL TARTRATE 25 MG TAB PO SCH (13:00)
== END 2020-01-16 15:52 | disposition home or self-care (01) | DRG 280 ==
LOC: ED 08:16 → 4A 15:54
PROVIDERS: ADMIT Internal Medicine; ATTEND Internal Medicine
PROC: 5A1D70Z Performance of Urinary Filtration, Intermittent, Less than 6 Hours Per Day (ICD-10-PCS; principal; 2020-01-15)
DX: I13.2 Hypertensive heart and chronic kidney disease with heart failure and with stage 5 chronic kidney disease, or end stage renal disease (principal); I21.A1 Myocardial infarction type 2; N18.6 End stage renal disease; I50.31 Acute diastolic (congestive) heart failure; D63.8 Anemia in other chronic diseases classified elsewhere; E87.5 Hyperkalemia; I20.9 Angina pectoris, unspecified; D69.59 Other secondary thrombocytopenia; E11.22 Type 2 diabetes mellitus with diabetic chronic kidney disease; T45.525A Adverse effect of antithrombotic drugs, initial encounter; E78.5 Hyperlipidemia, unspecified; Z88.8 Allergy status to other drugs, medicaments and biological substances; Z79.899 Other long term (current) drug therapy; Z99.2 Dependence on renal dialysis; Z79.82 Long term (current) use of aspirin; Z79.891 Long term (current) use of opiate analgesic; Z79.01 Long term (current) use of anticoagulants; Z79.84 Long term (current) use of oral hypoglycemic drugs; Y92.89 Other specified places as the place of occurrence of the external cause
CPT/HCPCS: 36415; 71046; 78452; 78580; 80048; 80061; 80074; 80076; 82962; 83735; 84100; 84484; 85025; 93005; 93017; 93306; G0378; A9270-GY; A9502; A9540; J1644; J1815; J2785

== ENCOUNTER 2020-07-11 06:35 | Day surgery (SDC) | payer MEDICARE, BC ==
[2020-07-11] MEDS ORDERED: ASPIRIN EC 325 MG TAB PO ONE (06:50)
[2020-07-11] MEDS ORDERED: SODIUM CHLORIDE 0.9% 500 ML 500 ML IV SCH (07:00)
[2020-07-11 07:13] LABS: Basophils # (Auto) 0.1 K/mm3 (0.0-0.1); Basophils % (Auto) 0.9 % (0.0-1.8); Eosinophils # (Auto) 0.3 K/mm3 (0.0-0.4); Eosinophils % (Auto) 4.4 % (0.0-4.3); Hematocrit 36.8 % (35.5-45.6); Hemoglobin 12.3 gm/dl (11.8-15.2); Lymphocytes # (Auto) 1.6 K/mm3 (1.2-5.4); Lymphocytes % (Auto) 27.9 % (13.4-35.0); Mean Corpuscular HGB Conc 34 % (32-34); Mean Corpuscular Volume 93 fl (84-94); Monocytes # (Auto) 0.6 K/mm3 (0.0-0.8); Monocytes % (Auto) 9.8 % (0.0-7.3); Platelet Count 121 K/mm3 (140-440); Red Blood Count 3.95 M/mm3 (3.65-5.03)
[2020-07-11 07:23] LABS: INR 1.02 (0.87-1.13)
[2020-07-11 07:24] LABS: Partial Thromboplastin Time 28.2 Sec. (24.2-36.6)
[2020-07-11 07:26] LABS: Calcium 8.4 mg/dL (8.4-10.2)
[2020-07-11] MEDS ORDERED: HEPARIN/NS 5000 UNIT/500ML 1,000 ML IR ONE (08:24)
[2020-07-11] MEDS ORDERED: HEPARIN 10,000 UNITS/10 ML VIAL ONE (08:24)
[2020-07-11] MEDS ORDERED: MIDAZOLAM 2 MG/2 ML INJ ONE (08:24)
[2020-07-11] MEDS ORDERED: LIDOCAINE (2%) 20 MG/1 ML VIAL 20 ML MDV INFILTRATI ONE (08:25)
[2020-07-11] MEDS ORDERED: VERAPAMIL 5 MG/2 ML INJ ONE (08:25)
[2020-07-11] MEDS ORDERED: NITROGLYCERIN SYRINGE 3 ML ONE (08:25)
[2020-07-11] MEDS ORDERED: fentaNYL 100 MCG/2 ML INJ ONE (08:25)
--- NOTE | 2020-07-11 08:25 | Short Stay Summary ---
Short Stay Documentation Date of service: 07/11/20 - History H&P: obtained from office Past Medical History: diabetes, dialysis, ESRD, hypertension, hyperlipidemia Past Surgical History: no valve replacement, no CABG, no PTCA Social history: no smoking, no alcohol abuse - Allergies and Medications Current Medications: Allergies lactose Adverse Reaction (Verified 07/11/20 07:20) Diarrhea lisinopril Adverse Reaction (Verified 07/11/20 07:20) Unknown cough Home Medications Medication Instructions Recorded Confirmed Last Taken Type NovoLOG Mix 70/30 VIAL 2 units IJ ONCE 01/15/20 07/11/20 07/10/20 History 2 units Velphoro (Nf) 500 mg PO TID 01/15/20 07/11/20 07/10/20 History 3 tabs AtorvaSTATin [Lipitor] 40 mg PO QHS #30 tablet 01/16/20 07/11/20 07/10/20 Rx 1 tab ISOSORBIDE MONOnitrate [Imdur ER] 30 mg PO QDAY #30 tablet 01/16/20 07/11/20 07/10/20 Rx 1 tab Aspirin 81 mg PO QDAY 07/11/20 07/11/20 07/10/20 History 1 tab Metoprolol [Lopressor TAB] 50 mg PO BID 07/11/20 07/11/20 07/10/20 History 2 tab Active Medications Sodium Chloride (Nacl 0.9% 500 Ml) 500 mls @ 50 mls/hr IV DIRECT ZENON Stop: 07/11/20 16:59 Last Admin: 07/11/20 08:11 Dose: 50 mls/hr Documented by: - Physical exam General appearance: no acute distress Integumentary: no rash, other (R radial site - c/d/i, no evidence of bleeding or hematoma) HEENT: Atraumatic Lungs: Clear to auscultation Heart: Normal S1, Normal S2, No murmurs Gastrointestinal: normal Extremities: pulses symmetrical, No edema, normal temperature Neurological: Normal speech, Normal tone, Sensation intact - Brief post op/procedure progress note Date of procedure: 07/11/20 Pre-op diagnosis: Abnormal Stress Test Post-op diagnosis: other (CAD) Surgeon: ISABELLA RICKS Estimated blood loss: minimal Pathology: none Condition: stable - Hospital course Hospital course: Pt presented on 07/11/2020 for elective LHC in the setting of abnormal stress test. LHC performed today revealed severe multi-vessel CAD (see cath report). Pt tolerate procedure well. Currently stable with no complaints. Pt will be referred for CABG to be performed as an outpatient. - Disposition Condition at discharge: Good Disposition: DC-01 TO HOME OR SELFCARE - Discharge Diagnoses (1) CAD (coronary artery disease) Status: Chronic Qualifiers: Coronary Disease-Associated Artery/Lesion type: bel[place]ski artery [place] vs. transplanted heart: belk[place]ski heart Short Stay Discharge Plan Activity: advance as tolerated Diet: low fat, low cholesterol, low salt, diabetic Wound: per your surgeon's advice Additional Instructions: You should receive a call from Cardiac Surgeons office next week to schedule an appt. Follow up with: HEATHER AGUILAR MD [Primary Care Provider] - 7 Days ISABELLA RICKS MD [Staff Physician] - 7 Days Forms: CardCath PCI D/C Instructions
[2020-07-11] MEDS ORDERED: NITROGLYCERIN 600 MCG/3 ML SYRINGE ART-SHEATH ONE (08:51)
--- NOTE | 2020-07-11 09:46 | Cardiac Catherization Report ---
DATE OF SERVICE: 07/11/2020 LEFT HEART CATHETERIZATION CLINICAL INFORMATION: This is a 55-year-old -[place] gentleman with end-stage renal disease on hemodialysis, hypertension, hyperlipidemia, had abnormal stress test, here for a left heart catheterization. Left heart catheterization performed by the right radial artery, sterile technique, local anesthesia. A 6-[place] radial sheath inserted. Procedure was done under moderate sedation, was started at 8:48 and finished at 8:58. 10 minutes of moderate sedation. Procedure was done via the right radial artery, sterile technique, local anesthesia. A 6-[place] radial sheath inserted. engaged JL 3.5 catheter. Left main is a large caliber vessel, proximal patent, mid 20-30%, bifurcates into a medium to large caliber LAD. Mid has 80%, at bifurcation 80% ostial diagonal 1. Both are medium caliber vessels. Circumflex ostial large 95% ostial. Circumflex is a large caliber vessel. OM1 is a medium caliber vessel, patent. After OM1, there is a 95% lesion in the mid circumflex. OM2 patent. RCA, proximal mid diffuse 70%-80%, PDA 70%. Extensive right to left collaterals feeding into the LAD and into the OM system. LV gram done in [place] and [place] shows EF 55%-60%. 15 mmHg. LV is 118, aortic is 116/67. No gradient across the aortic valve on pullback. A 5-[place] catheter taken out over guidewire. A 6-[place] radial sheath discontinued. Radial band applied. No hematoma. No bleeding. SUMMARY: 1. Multivessel disease. Left main distal 20%, LAD mid bifurcation 80%, ostial diagonal 1 80%, circumflex ostial 94%, mid 95%, OM1 and OM2 patent, RCA proximal and mid 70%, PDA 70%, right to left collaterals. 2. Normal left ventricular function. 3. The patient will be referred for bypass surgery at [place]. Discussed in detail with the patient's family. TID: [id number] RECEIPT: [id number] TATYANA/ARIES/STEFANI SAWYER
[2020-07-11] MEDS ORDERED: traMADol 50 MG TAB PO PRN (10:30)
[2020-07-11] MEDS ORDERED: HYDROcodone/ACETAMINOPHEN 5-325 MG TAB PO PRN (10:30)
[2020-07-11 13:14] VITALS: BP 180/70
--- NOTE | 2020-07-11 13:39 | Electrocardiograph Report ---
[facility] Test Date: 2020-07-11 Test Time: 07:29:43 Pat Name: ROLY KHAN JR Department: Room: Gender: M Services Account Manager: SAMMI : 1965 Requested By: ISABELLA RICKS Order Number: [id number] Reading MD: Jame Valderrama Measurements Intervals [place] Rate: 66 P: 37 ID: [id number] QRS: -24 QRSD: 99 T: 49 QT: 403 QTc: 424 Interpretive Statements Sinus rhythm No previous ECG available for comparison Electronically Signed On 07-11-2020 13:39:01 EDT by Jame Valderrama
== END 2020-07-11 13:50 | disposition home or self-care (01) ==
LOC: CATHLABREC 06:35
PROVIDERS: ATTEND Internal Medicine
DX: R94.39 Abnormal result of other cardiovascular function study (principal); I25.118 Atherosclerotic heart disease of native coronary artery with other forms of angina pectoris; I13.2 Hypertensive heart and chronic kidney disease with heart failure and with stage 5 chronic kidney disease, or end stage renal disease; E11.22 Type 2 diabetes mellitus with diabetic chronic kidney disease; I50.9 Heart failure, unspecified; N18.6 End stage renal disease; E78.5 Hyperlipidemia, unspecified; Z88.8 Allergy status to other drugs, medicaments and biological substances; Z79.899 Other long term (current) drug therapy; Z79.82 Long term (current) use of aspirin; Z99.2 Dependence on renal dialysis; Z98.890 Other specified postprocedural states; Z83.3 Family history of diabetes mellitus; Z80.8 Family history of malignant neoplasm of other organs or systems
CPT/HCPCS: 36415; 80048; 85025; 85610; 85730; 93005; 93458; 99156; C1894; J1644; J2250; J3010; J7040; Q9967